=== PATIENT | male | born 1970 | race Two or more races ===

== ENCOUNTER 2021-09-11 10:30 | Inpatient (IN) | payer MEDICAID, OTHER ==
[~2021-09-11] VITALS: Ht 167.6 cm; Wt 50.0 kg
[2021-09-11] MEDS: SODIUM CHLORIDE 0.9% 1,000 ML IV SCH (02:05)
[2021-09-11] MEDS: PANTOPRAZOLE 40 MG/10 ML VIAL INJ IV SCH (02:05)
[2021-09-11] MEDS ORDERED: SODIUM CHLORIDE 0.9% 1,000 ML IV ONE ×2 (11:30→15:15)
[2021-09-11 11:55] LABS: Basophils # (auto) 0 10 ^3/uL (0-0.2); Eosinophils # (auto) 0 10 ^3/uL (0-0.8); Hemoglobin 7.6 g/dL (13.5-17.5)
[2021-09-11 12:08] LABS: INR 1.16 (0.9-1.15); Partial Thromboplastin Time 27.4 sec (23.6-33.0)
[2021-09-11 12:34] LABS: Potassium 3.8 mmol/L (3.5-5.1)
[2021-09-11 12:41] LABS: Basophils % (auto) 0.3 % (0.0-2.0); Eosinophils % (auto) 0.1 % (0.0-7.0); Hematocrit 23.5 % (41.0-53.0); Lymphocytes # (auto) 0.3 10 ^3/uL (0.4-5.4); Lymphocytes % (auto) 4.1 % (10.0-50.0); Mean Corpuscular Hemoglobin 24.5 pg (28.0-32.0); Mean Corpuscular Hgb Conc. 32.5 g/dL (32.0-36.0); Mean Corpuscular Volume 75.3 fL (80.0-100.0); Monocytes # (auto) 0.4 10 ^3/uL (0-1.3); Monocytes % (auto) 5.3 % (0.0-12.0); Neutrophils # (auto) 7.1 10 ^3/uL (1.6-8.6); Neutrophils % (auto) 90.2 % (37.0-80.0); Red Blood Cells 3.12 10^6/uL (4.5-5.90); Red Cell Distribution Width 21.6 % (11.8-14.3); White Blood Cell 7.9 10^3/uL (4.4-10.8)
[2021-09-11 12:44] LABS: BUN/Creatinine Ratio 7.8
[2021-09-11 12:45] LABS: Albumin 3.1 g/dL (3.4-5.0); Bilirubin, Total 0.4 mg/dL (0.2-1.0); Calcium 8.2 mg/dL (8.5-10.1)
[2021-09-11] MEDS ORDERED: chlordiazePOXIDE HCL 5 MG CAP PO ONE (15:15)
[2021-09-11] MEDS ORDERED: PANTOPRAZOLE 80 MG in SODIUM CHL 0.9% 100 ML IV ONE (17:00)
[2021-09-11] MEDS ORDERED: ACETAMINOPHEN 325 MG TAB PO PRN (22:00)
[2021-09-11] MEDS ORDERED: HYDROcodone-ACET 5/325MG TAB PO PRN (22:00)
[2021-09-11] MEDS ORDERED: ONDANSETRON HCL 4 MG/2 ML VIAL IV PRN (22:00)
[2021-09-11] MEDS ORDERED: NITROGLYCERIN 0.4 MG SL TAB SL PRN (23:45)
[2021-09-11] MEDS ORDERED: MORPHINE SULFATE INJECTION 2 MG/ML SYRG IV PRN (23:45)
[2021-09-12] VITALS (9 sets, daily range): BP systolic 124–149; BP diastolic 51–70
[2021-09-12] MEDS ORDERED: FERR-20 PO (05:35)
[2021-09-12 08:41] LABS: Mean Corpuscular Volume 75.2 fL (80.0-100.0); Red Cell Distribution Width 21.4 % (11.8-14.3)
[2021-09-12 08:43] LABS: Hematocrit 20.9 % (41.0-53.0); Mean Corpuscular Hemoglobin 23.7 pg (28.0-32.0); Mean Corpuscular Hgb Conc. 31.5 g/dL (32.0-36.0); Red Blood Cells 2.78 10^6/uL (4.5-5.90)
[2021-09-12 08:53] LABS: Albumin 2.7 g/dL (3.4-5.0); Calcium 8.3 mg/dL (8.5-10.1); Potassium 3.1 mmol/L (3.5-5.1)
[2021-09-12 08:54] LABS: Hemoglobin 6.6 g/dL (13.5-17.5)
[2021-09-12 08:56] LABS: Basophils % (manual) 0 (0.0-2.0); Blast Cells 0; Eosinophils % (manual) 0 (0-7); Metamyelocytes % 0; Myelocytes % 0; Promyelocytes % 0; Reactive Lymphocytes 0
[2021-09-12 08:57] LABS: BUN/Creatinine Ratio 15.2; Bilirubin, Total 0.6 mg/dL (0.2-1.0); Total Protein 7.9 g/dL (6.4-8.2)
[2021-09-12] MEDS ORDERED: FOLIC ACID 1 MG in D5W 5% 50 ML INJ SCH (10:00)
[2021-09-12] MEDS ORDERED: THIAMINE 100mg/ml INJ (200mg/2ml VIAL) IV SCH (10:00)
[2021-09-12] MEDS ORDERED: ENOXAPARIN SOD 40 MG/0.4 ML SYRINGE SC SCH (10:00)
[2021-09-12] MEDS: PANTOPRAZOLE 40 MG/10 ML VIAL INJ IV SCH ×2 (10:00→21:45)
[2021-09-12] MEDS ORDERED: MULTIPLE VITAMIN TAB PO SCH (10:00)
[2021-09-12] MEDS: SUCRALFATE 1 GM/10 ML ORAL SUSP PO SCH ×3 (11:30→21:46)
[2021-09-12 13:52] LABS: Band Neutrophils % (manual) 3; Lymphocytes % (manual) 22 (10.0-50.0); Monocytes % (manual) 17 (0-12)
[2021-09-12] MEDS: SODIUM CHLORIDE 0.9% 1,000 ML IV SCH (14:40)
[2021-09-12] MEDS: LORazepam 2MG/ML-1ML VIAL IV PRN ×3 (15:27→23:45)
[2021-09-12] MEDS: FERROUS SULFATE 325mg EC TAB PO SCH (18:24)
[2021-09-12] MEDS ORDERED: chlordiazePOXIDE HCL 25 MG CAP PO PRN (23:30)
[2021-09-13] MEDS: LORazepam 2MG/ML-1ML VIAL IV PRN ×5 (03:25→23:55)
[2021-09-13 06:10] LABS: Basophils # (auto) 0 10 ^3/uL (0-0.2); Eosinophils # (auto) 0 10 ^3/uL (0-0.8); Monocytes # (auto) 0.7 10 ^3/uL (0-1.3); Neutrophils # (auto) 2.9 10 ^3/uL (1.6-8.6)
[2021-09-13 06:13] LABS: Basophils % (auto) 0.5 % (0.0-2.0); Eosinophils % (auto) 0.1 % (0.0-7.0); Hematocrit 24.4 % (41.0-53.0); Lymphocytes # (auto) 0.4 10 ^3/uL (0.4-5.4); Lymphocytes % (auto) 9.8 % (10.0-50.0); Mean Corpuscular Hemoglobin 24.9 pg (28.0-32.0); Mean Corpuscular Hgb Conc. 32.8 g/dL (32.0-36.0); Monocytes % (auto) 16.2 % (0.0-12.0); Neutrophils % (auto) 73.4 % (37.0-80.0); Red Blood Cells 3.22 10^6/uL (4.5-5.90); Red Cell Distribution Width 20.4 % (11.8-14.3)
[2021-09-13] MEDS: SODIUM CHLORIDE 0.9% 1,000 ML IV SCH (06:13)
[2021-09-13 06:22] LABS: INR 1.21 (0.9-1.15)
[2021-09-13 06:39] LABS: Albumin 3.1 g/dL (3.4-5.0); BUN/Creatinine Ratio 12.5; Calcium 8.7 mg/dL (8.5-10.1)
[2021-09-13 06:42] LABS: Bilirubin, Total 0.8 mg/dL (0.2-1.0); Total Protein 8.5 g/dL (6.4-8.2)
[2021-09-13] MEDS: SUCRALFATE 1 GM/10 ML ORAL SUSP PO SCH ×4 (07:10→22:00)
[2021-09-13] MEDS: chlordiazePOXIDE HCL 25 MG CAP PO SCH ×4 (07:10→22:23)
[2021-09-13 07:13] LABS: Potassium 2.8 mmol/L (3.5-5.1)
[2021-09-13 08:00] VITALS: BP 147/83
[2021-09-13] MEDS ORDERED: D5W/ SOD CHL 0.9%/KCL 20MEQ 1,000 ML IV ONE (09:15)
[2021-09-13] MEDS ORDERED: POTASSIUM CHL 20 Meq TABLET PO ONE (09:15)
[2021-09-13] MEDS: FERROUS SULFATE 325mg EC TAB PO SCH ×2 (10:15→16:52)
[2021-09-13] MEDS: POTASSIUM CHL 10MEQ/50ML 50 ML IV SCH ×4 (10:16→13:56)
[2021-09-13] MEDS: PANTOPRAZOLE 40 MG/10 ML VIAL INJ IV SCH ×2 (10:16→22:23)
[2021-09-13] MEDS: FOLIC ACID 1 MG, MULTIPLE VITAMIN 10 ML, MAGNESIUM SULF SDV 50% 8 MEQ, THIAMINE INJ 100... INJ SCH ×5 (16:45)
[2021-09-13 22:30] VITALS: BP 141/76
[2021-09-14] MEDS: LORazepam 2MG/ML-1ML VIAL IV PRN ×2 (05:20→21:46)
[2021-09-14] MEDS: SUCRALFATE 1 GM/10 ML ORAL SUSP PO SCH ×4 (05:21→21:45)
[2021-09-14] MEDS: chlordiazePOXIDE HCL 25 MG CAP PO SCH ×3 (05:22→21:46)
[2021-09-14 05:30] VITALS: BP 139/84
[2021-09-14] MEDS: SODIUM CHLORIDE 0.9% 1,000 ML IV SCH (05:44)
[2021-09-14 08:10] VITALS: BP 141/78
[2021-09-14 09:00] VITALS: BP 141/78
[2021-09-14] MEDS: FERROUS SULFATE 325mg EC TAB PO SCH ×2 (09:13→18:40)
[2021-09-14] MEDS: PANTOPRAZOLE 40 MG/10 ML VIAL INJ IV SCH ×2 (09:14→21:45)
[2021-09-14] MEDS: D5W/SOD CHLO 0.9% 1,000 ML IV SCH ×2 (11:42→18:15)
[2021-09-14 12:42] LABS: Hematocrit 26.2 % (41.0-53.0); Hemoglobin 8.6 g/dL (13.5-17.5); Mean Corpuscular Hemoglobin 25.8 pg (28.0-32.0); Mean Corpuscular Hgb Conc. 32.7 g/dL (32.0-36.0); Mean Corpuscular Volume 78.8 fL (80.0-100.0); Red Blood Cells 3.32 10^6/uL (4.5-5.90); White Blood Cell 3.5 10^3/uL (4.4-10.8)
[2021-09-14 12:44] LABS: Band Neutrophils % (manual) 0; Basophils % (manual) 0 (0.0-2.0); Blast Cells 0; Metamyelocytes % 0; Myelocytes % 0; Promyelocytes % 0; Reactive Lymphocytes 0; Red Cell Distribution Width 20.8 % (11.8-14.3)
[2021-09-14] MEDS: FOLIC ACID 1 MG, MULTIPLE VITAMIN 10 ML, MAGNESIUM SULF SDV 50% 8 MEQ, THIAMINE INJ 100... INJ SCH ×5 (12:47)
[2021-09-14 13:00] VITALS: BP 133/77
[2021-09-14 13:01] LABS: Eosinophils % (manual) 1 (0-7); Lymphocytes % (manual) 27 (10.0-50.0); Monocytes % (manual) 20 (0-12)
[2021-09-14 13:14] LABS: Albumin 3.1 g/dL (3.4-5.0); BUN/Creatinine Ratio 13.1; Bilirubin, Total 1.3 mg/dL (0.2-1.0); Calcium 8.9 mg/dL (8.5-10.1); Total Protein 8.6 g/dL (6.4-8.2)
[2021-09-14 13:20] LABS: Potassium 2.7 mmol/L (3.5-5.1)
[2021-09-14] MEDS ORDERED: POTASSIUM EFFERVESENT TAB 25 MEQ PO ONE (16:30)
[2021-09-14 17:00] VITALS: BP 128/72
[2021-09-14] MEDS: POTASSIUM CHL 10MEQ/50ML 50 ML IV SCH ×2 (18:40→20:10)
[2021-09-14 20:39] VITALS: BP 102/69
[2021-09-15] VITALS (7 sets, daily range): BP systolic 124–141; BP diastolic 61–75
[2021-09-15] MEDS: D5W/SOD CHLO 0.9% 1,000 ML IV SCH ×2 (02:15→05:40)
[2021-09-15] MEDS: SUCRALFATE 1 GM/10 ML ORAL SUSP PO SCH ×4 (06:51→22:00)
[2021-09-15] MEDS: chlordiazePOXIDE HCL 25 MG CAP PO SCH ×3 (06:51→22:02)
[2021-09-15] MEDS: FERROUS SULFATE 325mg EC TAB PO SCH ×2 (08:26→17:22)
[2021-09-15] MEDS: PANTOPRAZOLE 40 MG/10 ML VIAL INJ IV SCH ×2 (09:11→21:59)
[2021-09-15 11:13] LABS: Hematocrit 24.3 % (41.0-53.0); Hemoglobin 7.9 g/dL (13.5-17.5); Mean Corpuscular Hemoglobin 25.1 pg (28.0-32.0); Red Blood Cells 3.14 10^6/uL (4.5-5.90); White Blood Cell 3.4 10^3/uL (4.4-10.8)
[2021-09-15 11:15] LABS: Mean Corpuscular Hgb Conc. 32.4 g/dL (32.0-36.0); Mean Corpuscular Volume 77.6 fL (80.0-100.0)
[2021-09-15 11:19] LABS: Red Cell Distribution Width 20.4 % (11.8-14.3)
[2021-09-15 11:21] LABS: Basophils % (manual) 0 (0.0-2.0); Blast Cells 0; Metamyelocytes % 0; Myelocytes % 0; Promyelocytes % 0; Reactive Lymphocytes 0
[2021-09-15 11:45] LABS: Albumin 2.8 g/dL (3.4-5.0); Calcium 8.2 mg/dL (8.5-10.1)
[2021-09-15 11:50] LABS: BUN/Creatinine Ratio 6.9; Bilirubin, Total 0.9 mg/dL (0.2-1.0); Total Protein 7.8 g/dL (6.4-8.2)
[2021-09-15 11:56] LABS: Band Neutrophils % (manual) 4; Eosinophils % (manual) 9 (0-7); Lymphocytes % (manual) 29 (10.0-50.0); Monocytes % (manual) 10 (0-12)
[2021-09-15 11:59] LABS: Potassium 2.9 mmol/L (3.5-5.1)
[2021-09-15] MEDS: FOLIC ACID 1 MG, MULTIPLE VITAMIN 10 ML, MAGNESIUM SULF SDV 50% 8 MEQ, THIAMINE INJ 100... INJ SCH ×5 (14:47)
[2021-09-15] MEDS: SOD CHL 0.9%/ KCL 40MEQ 1,000 ML IV SCH ×2 (14:57→22:00)
[2021-09-15] MEDS: POTASSIUM CHL 10MEQ/50ML 50 ML IV SCH ×4 (15:24→21:59)
[2021-09-15] MEDS: AMINO ACID INFUSION IN D10W 1,000 ML IV SCH (22:30)
[2021-09-15] MEDS ORDERED: CLINIMIX PER PHARMACY 0 ML IV SCH (22:30)
[2021-09-16] MEDS ORDERED: DEXTROSE (50%) 50ML SYRG IV SCH
[2021-09-16 04:41] VITALS: BP 120/70
[2021-09-16] MEDS: InsuLIN REG 1unit/0.01ml Soln (100units/ml) SC SCH ×4 (06:00→17:44)
[2021-09-16 06:05] LABS: Hemoglobin 8.2 g/dL (13.5-17.5)
[2021-09-16 06:09] LABS: Mean Corpuscular Hemoglobin 25.6 pg (28.0-32.0); Mean Corpuscular Volume 77.7 fL (80.0-100.0); Red Blood Cells 3.21 10^6/uL (4.5-5.90); White Blood Cell 3.6 10^3/uL (4.4-10.8)
[2021-09-16 06:22] LABS: Red Cell Distribution Width 20.9 % (11.8-14.3)
[2021-09-16 06:23] LABS: Basophils % (manual) 0 (0.0-2.0); Blast Cells 0; Metamyelocytes % 0; Myelocytes % 0; Promyelocytes % 0; Reactive Lymphocytes 0
[2021-09-16] MEDS: ACCU-CHEK COMFORT CURVE STRIP VI SCH ×4 (06:34→17:44)
[2021-09-16 06:39] LABS: Albumin 2.7 g/dL (3.4-5.0); Calcium 8.4 mg/dL (8.5-10.1); Potassium 3.1 mmol/L (3.5-5.1)
[2021-09-16] MEDS: SUCRALFATE 1 GM/10 ML ORAL SUSP PO SCH ×4 (06:39→21:55)
[2021-09-16 06:44] LABS: Bilirubin, Total 0.8 mg/dL (0.2-1.0); Phosphorus 3.4 mg/dL (2.5-4.90); Total Protein 7.9 g/dL (6.4-8.2)
[2021-09-16 08:30] VITALS: BP 108/72
[2021-09-16 08:37] LABS: Band Neutrophils % (manual) 3; Eosinophils % (manual) 6 (0-7); Lymphocytes % (manual) 18 (10.0-50.0); Monocytes % (manual) 17 (0-12)
[2021-09-16] MEDS: chlordiazePOXIDE HCL 25 MG CAP PO SCH ×3 (08:43→23:30)
[2021-09-16] MEDS: FERROUS SULFATE 325mg EC TAB PO SCH ×2 (08:43→17:42)
[2021-09-16 09:00] VITALS: BP 108/72
[2021-09-16] MEDS: PANTOPRAZOLE 40 MG/10 ML VIAL INJ IV SCH ×2 (11:03→21:54)
[2021-09-16] MEDS: SOD CHL 0.9%/ KCL 40MEQ 1,000 ML IV SCH ×3 (11:05→21:05)
[2021-09-16] MEDS: POTASSIUM CHL 10MEQ/50ML 50 ML IV SCH ×4 (11:06→14:13)
[2021-09-16 13:00] VITALS: BP 109/75
[2021-09-16] MEDS: FOLIC ACID 1 MG, MULTIPLE VITAMIN 10 ML, MAGNESIUM SULF SDV 50% 8 MEQ, THIAMINE INJ 100... INJ SCH ×5 (14:17)
[2021-09-16 16:40] VITALS: BP 130/69
[2021-09-16] MEDS: POTASSIUM CHL 20 Meq TABLET PO SCH (17:43)
[2021-09-16 20:00] VITALS: BP 115/71
[2021-09-16] MEDS: AMINO ACID INFUSION IN D10W 1,000 ML IV SCH (21:54)
[2021-09-17] MEDS: ACCU-CHEK COMFORT CURVE STRIP VI SCH ×4 (02:04→17:41)
[2021-09-17] MEDS: InsuLIN REG 1unit/0.01ml Soln (100units/ml) SC SCH ×4 (05:38→17:40)
[2021-09-17 05:56] LABS: Albumin 2.8 g/dL (3.4-5.0); Calcium 8.8 mg/dL (8.5-10.1); Potassium 3.5 mmol/L (3.5-5.1)
[2021-09-17 06:01] LABS: Bilirubin, Total 0.6 mg/dL (0.2-1.0); Phosphorus 2.7 mg/dL (2.5-4.90); Total Protein 7.9 g/dL (6.4-8.2)
[2021-09-17] MEDS: SUCRALFATE 1 GM/10 ML ORAL SUSP PO SCH ×4 (06:05→22:00)
[2021-09-17] MEDS: chlordiazePOXIDE HCL 25 MG CAP PO SCH ×3 (08:55→23:19)
[2021-09-17] MEDS: FERROUS SULFATE 325mg EC TAB PO SCH ×2 (08:56→18:13)
[2021-09-17 09:00] VITALS: BP 119/67
[2021-09-17] MEDS: POTASSIUM CHL 20 Meq TABLET PO SCH (09:01)
[2021-09-17] MEDS: PANTOPRAZOLE 40 MG/10 ML VIAL INJ IV SCH ×2 (09:01→22:00)
[2021-09-17 13:00] VITALS: BP 122/69
[2021-09-17] MEDS: FOLIC ACID 1 MG, MULTIPLE VITAMIN 10 ML, MAGNESIUM SULF SDV 50% 8 MEQ, THIAMINE INJ 100... INJ SCH ×5 (15:00)
[2021-09-17] MEDS: SOD CHL 0.9%/ KCL 40MEQ 1,000 ML IV SCH (15:53)
[2021-09-17 17:00] VITALS: BP 114/75
[2021-09-17 20:00] VITALS: BP 121/76
[2021-09-17] MEDS: AMINO ACID INFUSION IN D10W 1,000 ML IV SCH (23:18)
[2021-09-18] MEDS: SOD CHL 0.9%/ KCL 40MEQ 1,000 ML IV SCH ×3 (01:00→21:19)
[2021-09-18] MEDS: ACCU-CHEK COMFORT CURVE STRIP VI SCH ×4 (02:26→18:01)
[2021-09-18] MEDS: InsuLIN REG 1unit/0.01ml Soln (100units/ml) SC SCH ×4 (06:00→18:00)
[2021-09-18 06:01] LABS: Hemoglobin 8.2 g/dL (13.5-17.5)
[2021-09-18 06:06] LABS: Hematocrit 25.9 % (41.0-53.0); Mean Corpuscular Hemoglobin 25.4 pg (28.0-32.0); Mean Corpuscular Hgb Conc. 31.7 g/dL (32.0-36.0); Red Blood Cells 3.23 10^6/uL (4.5-5.90); White Blood Cell 5.3 10^3/uL (4.4-10.8)
[2021-09-18 06:12] LABS: Red Cell Distribution Width 21.6 % (11.8-14.3)
[2021-09-18 06:13] LABS: Albumin 2.8 g/dL (3.4-5.0); Basophils % (manual) 0 (0.0-2.0); Blast Cells 0; Calcium 8.9 mg/dL (8.5-10.1); Metamyelocytes % 0; Myelocytes % 0; Potassium 3.8 mmol/L (3.5-5.1); Promyelocytes % 0; Reactive Lymphocytes 0
[2021-09-18 06:31] LABS: BUN/Creatinine Ratio 7.1; Bilirubin, Total 0.5 mg/dL (0.2-1.0); Phosphorus 1.9 mg/dL (2.5-4.90); Total Protein 8.2 g/dL (6.4-8.2)
[2021-09-18] MEDS: SUCRALFATE 1 GM/10 ML ORAL SUSP PO SCH ×4 (07:03→22:19)
[2021-09-18] MEDS: chlordiazePOXIDE HCL 25 MG CAP PO SCH ×3 (07:04→23:04)
[2021-09-18] MEDS ORDERED: LIDOCAINE VISCOUS 2% 15ML UD ONE (08:30)
[2021-09-18] MEDS ORDERED: diphenhdrAMINE HCL 50 MG/1 ML VL ONE (08:30)
[2021-09-18] MEDS ORDERED: MIDAZOLAM HCL 5 MG/ML-1ML VIAL ONE (08:30)
[2021-09-18] MEDS ORDERED: fentaNYL CITRATE 100 MCG/2 ML VL ONE (08:31)
[2021-09-18] MEDS: POTASSIUM CHL 20 Meq TABLET PO SCH (09:16)
[2021-09-18] MEDS: FERROUS SULFATE 325mg EC TAB PO SCH ×2 (09:16→17:59)
[2021-09-18 09:17] VITALS: BP 100/64
[2021-09-18] MEDS: PANTOPRAZOLE 40 MG/10 ML VIAL INJ IV SCH ×2 (09:22→22:19)
[2021-09-18] MEDS: FOLIC ACID 1 MG, MULTIPLE VITAMIN 10 ML, MAGNESIUM SULF SDV 50% 8 MEQ, THIAMINE INJ 100... INJ SCH ×5 (12:09)
[2021-09-18 13:00] VITALS: BP 110/68
[2021-09-18] MEDS ORDERED: MIDAZOLAM HCL 2MG/2ML 2ml VIAL (1mg/ml) ONE (13:48)
[2021-09-18] MEDS ORDERED: fentaNYL CITRATE 5 ML ONE (14:08)
[2021-09-18 14:25] LABS: Band Neutrophils % (manual) 2; Eosinophils % (manual) 4 (0-7); Lymphocytes % (manual) 14 (10.0-50.0); Monocytes % (manual) 25 (0-12)
[2021-09-18] MEDS ORDERED: SODIUM PHOSPH 24MEQ(18MMOL) IN NS 100 ML IV ONE (14:30)
[2021-09-18] MEDS ORDERED: PROPOFOL 10 MG/ML 20 ML IV ONE (15:04)
[2021-09-18] MEDS ORDERED: ONDANSETRON HCL 4 MG/2 ML VIAL IV PRN (15:15)
[2021-09-18 17:00] VITALS: BP 134/65
[2021-09-18 22:00] VITALS: BP 109/69
[2021-09-18] MEDS: AMINO ACID INFUSION IN D10W 1,000 ML IV SCH (23:42)
[2021-09-19 05:00] VITALS: BP 112/70
[2021-09-19] MEDS: InsuLIN REG 1unit/0.01ml Soln (100units/ml) SC SCH ×5 (05:37→23:50)
[2021-09-19] MEDS: ACCU-CHEK COMFORT CURVE STRIP VI SCH ×5 (05:37→23:57)
[2021-09-19 05:48] LABS: Basophils # (auto) 0 10 ^3/uL (0-0.2); Basophils % (auto) 0.6 % (0.0-2.0); Eosinophils # (auto) 0.2 10 ^3/uL (0-0.8); Lymphocytes # (auto) 0.7 10 ^3/uL (0.4-5.4); Monocytes # (auto) 1.4 10 ^3/uL (0-1.3); Neutrophils # (auto) 2.2 10 ^3/uL (1.6-8.6)
[2021-09-19 05:50] LABS: Eosinophils % (auto) 3.4 % (0.0-7.0); Hematocrit 24.8 % (41.0-53.0); Mean Corpuscular Hemoglobin 26.1 pg (28.0-32.0); Mean Corpuscular Hgb Conc. 32.3 g/dL (32.0-36.0); Mean Corpuscular Volume 80.8 fL (80.0-100.0); Neutrophils % (auto) 49.2 % (37.0-80.0); Red Blood Cells 3.07 10^6/uL (4.5-5.90); Red Cell Distribution Width 22.1 % (11.8-14.3); White Blood Cell 4.5 10^3/uL (4.4-10.8)
[2021-09-19 05:59] LABS: Potassium 4.1 mmol/L (3.5-5.1)
[2021-09-19 06:06] LABS: Albumin 2.8 g/dL (3.4-5.0); BUN/Creatinine Ratio 10.2; Bilirubin, Total 0.4 mg/dL (0.2-1.0); Calcium 8.8 mg/dL (8.5-10.1); Phosphorus 1.8 mg/dL (2.5-4.90); Total Protein 8.1 g/dL (6.4-8.2)
[2021-09-19 06:11] LABS: Monocytes % (auto) 30.8 % (0.0-12.0)
[2021-09-19] MEDS: SOD CHL 0.9%/ KCL 40MEQ 1,000 ML IV SCH (06:39)
[2021-09-19] MEDS: SUCRALFATE 1 GM/10 ML ORAL SUSP PO SCH ×4 (06:39→21:45)
[2021-09-19] MEDS: chlordiazePOXIDE HCL 25 MG CAP PO SCH ×3 (07:30→23:24)
[2021-09-19 09:00] VITALS: BP 141/66
[2021-09-19] MEDS: PANTOPRAZOLE 40 MG/10 ML VIAL INJ IV SCH ×2 (10:33→21:45)
[2021-09-19] MEDS: POTASSIUM CHL 20 Meq TABLET PO SCH (10:33)
[2021-09-19] MEDS: FERROUS SULFATE 325mg EC TAB PO SCH ×2 (10:33→17:12)
[2021-09-19 13:00] VITALS: BP 150/65
[2021-09-19] MEDS: FOLIC ACID 1 MG, MULTIPLE VITAMIN 10 ML, MAGNESIUM SULF SDV 50% 8 MEQ, THIAMINE INJ 100... INJ SCH ×5 (13:35)
[2021-09-19] MEDS ORDERED: SODIUM PHOSPH 24MEQ(18MMOL) IN NS 100 ML IV ONE (15:45)
[2021-09-19 17:00] VITALS: BP 140/69
[2021-09-19 22:00] VITALS: BP 143/98
[2021-09-19] MEDS: AMINO ACID INFUSION IN D10W 1,000 ML IV SCH (23:26)
[2021-09-20 05:00] VITALS: BP 121/69
[2021-09-20 05:24] LABS: Basophils # (auto) 0.1 10 ^3/uL (0-0.2); Basophils % (auto) 1.3 % (0.0-2.0); Eosinophils # (auto) 0.2 10 ^3/uL (0-0.8); Eosinophils % (auto) 4.5 % (0.0-7.0); Hematocrit 24.2 % (41.0-53.0); Lymphocytes # (auto) 0.8 10 ^3/uL (0.4-5.4); Lymphocytes % (auto) 19.7 % (10.0-50.0); Mean Corpuscular Hemoglobin 26.7 pg (28.0-32.0); Mean Corpuscular Volume 80.8 fL (80.0-100.0); Monocytes # (auto) 1.3 10 ^3/uL (0-1.3); Neutrophils # (auto) 1.8 10 ^3/uL (1.6-8.6); Neutrophils % (auto) 44.1 % (37.0-80.0); Red Blood Cells 2.99 10^6/uL (4.5-5.90); White Blood Cell 4.2 10^3/uL (4.4-10.8)
[2021-09-20 05:29] LABS: Red Cell Distribution Width 22.2 % (11.8-14.3)
[2021-09-20 05:30] LABS: Monocytes % (auto) 30.4 % (0.0-12.0)
[2021-09-20 05:40] LABS: Potassium 3.6 mmol/L (3.5-5.1)
[2021-09-20 05:55] LABS: Albumin 2.9 g/dL (3.4-5.0); BUN/Creatinine Ratio 15.2; Bilirubin, Total 0.4 mg/dL (0.2-1.0); Calcium 9.3 mg/dL (8.5-10.1); Magnesium 1.6 mg/dL (1.6-2.6); Phosphorus 3.8 mg/dL (2.5-4.90); Total Protein 8.3 g/dL (6.4-8.2)
[2021-09-20] MEDS: InsuLIN REG 1unit/0.01ml Soln (100units/ml) SC SCH ×4 (06:00→23:22)
[2021-09-20] MEDS: ACCU-CHEK COMFORT CURVE STRIP VI SCH ×4 (06:09→23:23)
[2021-09-20] MEDS: SUCRALFATE 1 GM/10 ML ORAL SUSP PO SCH ×4 (07:30→21:53)
[2021-09-20] MEDS: chlordiazePOXIDE HCL 25 MG CAP PO SCH ×3 (07:30→23:17)
[2021-09-20 08:00] VITALS: BP 141/76
[2021-09-20] MEDS: FERROUS SULFATE 325mg EC TAB PO SCH ×2 (08:30→17:28)
[2021-09-20] MEDS: PANTOPRAZOLE 40 MG/10 ML VIAL INJ IV SCH ×2 (09:54→21:53)
[2021-09-20] MEDS: POTASSIUM CHL 20 Meq TABLET PO SCH (09:54)
[2021-09-20 12:00] VITALS: BP 120/67
[2021-09-20] MEDS: FOLIC ACID 1 MG, MULTIPLE VITAMIN 10 ML, MAGNESIUM SULF SDV 50% 8 MEQ, THIAMINE INJ 100... INJ SCH ×5 (14:00)
[2021-09-20 16:10] VITALS: BP 141/100
[2021-09-20 21:41] VITALS: BP 132/88
[2021-09-20] MEDS: LORazepam 2MG/ML-1ML VIAL IV PRN (23:17)
[2021-09-20] MEDS: AMINO ACID INFUSION IN D10W 1,000 ML IV SCH (23:27)
[2021-09-21 05:06] VITALS: BP 151/98
[2021-09-21] MEDS: InsuLIN REG 1unit/0.01ml Soln (100units/ml) SC SCH ×3 (06:00→18:00)
[2021-09-21] MEDS: ACCU-CHEK COMFORT CURVE STRIP VI SCH ×3 (06:23→18:19)
[2021-09-21] MEDS: chlordiazePOXIDE HCL 25 MG CAP PO SCH ×2 (06:25→15:30)
[2021-09-21] MEDS: SUCRALFATE 1 GM/10 ML ORAL SUSP PO SCH ×3 (06:25→17:50)
[2021-09-21 06:33] LABS: Potassium 3.4 mmol/L (3.5-5.1)
[2021-09-21 06:39] LABS: Albumin 2.9 g/dL (3.4-5.0); BUN/Creatinine Ratio 14.5; Bilirubin, Total 0.6 mg/dL (0.2-1.0); Calcium 8.9 mg/dL (8.5-10.1); Phosphorus 2.9 mg/dL (2.5-4.90); Total Protein 8.3 g/dL (6.4-8.2)
[2021-09-21] MEDS: FERROUS SULFATE 325mg EC TAB PO SCH ×2 (08:26→18:18)
[2021-09-21 09:00] VITALS: BP 138/101
[2021-09-21] MEDS ORDERED: PANT40T PO (10:06)
[2021-09-21] MEDS: PANTOPRAZOLE 40 MG/10 ML VIAL INJ IV SCH (10:11)
[2021-09-21] MEDS: POTASSIUM CHL 20 Meq TABLET PO SCH (10:12)
[2021-09-21] MEDS ORDERED: FOLITAB22 PO (10:13)
[2021-09-21] MEDS ORDERED: POTA-220 PO (10:13)
[2021-09-21] MEDS ORDERED: THIA100T5 PO (10:13)
[2021-09-21] MEDS ORDERED: FERR-7 PO (10:13)
[2021-09-21] MEDS ORDERED: CHL25C GT (10:15)
[2021-09-21] MEDS: FOLIC ACID 1 MG, MULTIPLE VITAMIN 10 ML, MAGNESIUM SULF SDV 50% 8 MEQ, THIAMINE INJ 100... INJ SCH ×5 (12:00)
[2021-09-21 12:59] VITALS: BP 180/106
[2021-09-21 13:05] VITALS: BP 108/64
[2021-09-21] MEDS ORDERED: cloNIDine HCL 0.1 MG TAB PO ONE (13:15)
[2021-09-21] MEDS: POTASSIUM CHL 10MEQ/50ML 50 ML IV SCH ×2 (15:00→17:57)
[2021-09-21 16:54] VITALS: BP 139/89
== END 2021-09-21 19:30 | disposition home or self-care (01) | DRG 241 ==
LOC: ER 10:30 → OVERFLOW 23:35 → WEST WING 09-12 02:05 → CENTRAL 09-13 00:05
PROVIDERS: ADMIT Nurse Practitioner Family; ATTEND Family Medicine
PROC: 30233N1 Transfusion of Nonautologous Red Blood Cells into Peripheral Vein, Percutaneous Approach (ICD-10-PCS; 2021-09-12)
PROC: 05HC33Z Insertion of Infusion Device into Left Basilic Vein, Percutaneous Approach (ICD-10-PCS; 2021-09-14)
PROC: B54NZZA Ultrasonography of Left Upper Extremity Veins, Guidance (ICD-10-PCS; 2021-09-14)
PROC: 0DB68ZX Excision of Stomach, Via Natural or Artificial Opening Endoscopic, Diagnostic (ICD-10-PCS; 2021-09-18)
PROC: 0DB98ZX Excision of Duodenum, Via Natural or Artificial Opening Endoscopic, Diagnostic (ICD-10-PCS; principal; 2021-09-18 14:39)
DX: K29.71 Gastritis, unspecified, with bleeding (principal); G92.8 Other toxic encephalopathy; F10.231 Alcohol dependence with withdrawal delirium; D61.818 Other pancytopenia; R64 Cachexia; D63.8 Anemia in other chronic diseases classified elsewhere; E87.1 Hypo-osmolality and hyponatremia; D62 Acute posthemorrhagic anemia; K25.4 Chronic or unspecified gastric ulcer with hemorrhage; K76.0 Fatty (change of) liver, not elsewhere classified; E86.0 Dehydration; E21.3 Hyperparathyroidism, unspecified; I10 Essential (primary) hypertension; N40.0 Benign prostatic hyperplasia without lower urinary tract symptoms; Y90.3 Blood alcohol level of 60-79 mg/100 ml; E87.6 Hypokalemia; K31.9 Disease of stomach and duodenum, unspecified; K44.9 Diaphragmatic hernia without obstruction or gangrene; R73.9 Hyperglycemia, unspecified; Z20.822 Contact with and (suspected) exposure to COVID-19; Z71.41 Alcohol abuse counseling and surveillance of alcoholic; Z68.1 Body mass index [BMI] 19.9 or less, adult
CPT/HCPCS: 36415; 70450; 71045; 74176; 80053; 80320; 82040; 82140; 82962; 83735; 84100; 84478; 84484; 85007; 85025; 85027; 85610; 85730; 86850; 86900; 86901; 86920; 93005; 96361; 96365; 99291; A4565; C9113; G0378; J2250; J2704; J7060